=== PATIENT | male | born 1985 | race Two or more races ===

== ENCOUNTER 2021-04-29 14:29 | Emergency (ER) | payer OTHER, SELFPAY ==
[2021-04-29 15:00] VITALS: BP 156/80; PULSE 81; RESP 18; TEMP 36.2; O2SAT 100; BMI 37.3
--- NOTE | 2021-04-29 15:18 | ED.SKABFB ---
HPI - Skin/Abscess/Foreign Bdy General Chief complaint: Skin/Abscess/Foreign Body Stated complaint: rash Time Seen by Provider: 04/29/21 15:11 Source: patient Mode of arrival: ambulatory Limitations: no limitations History of Present Illness HPI narrative: 35-year-old male presenting to the ED with complaints of a rash splotchy like all over his body over the past few weeks worse over the past few days. He reports that he has been seen at the urgent care center and at [facility], [place] and they sent him home with Benadryl and steroids and he reports he finished a course of steroids and no symptomatic relief that the rash is getting worse. He reports that he takes Benadryl and he has mild to no symptomatic relief. He denies any new substances. He denies any other symptoms complaints or concerns at this time. MD complaint: rash Onset (ago): week(s) Location: generalized, LUE, RUE, buttocks and genitals Severity: moderate Quality: constant and pruritic Pain Consistency: constant Relieving factors: none Exacerbating factors: none Context: none Associated symptoms: denies other symptoms Treatments prior to arrival: other (Patient reports he has been taking Benadryl and finished a course of steroids although no symptomatic relief) Related Data Previous Rx's Medication Instructions Recorded clotrimazole 1 % topical ointment 1 appl TOPICAL Q12H 56 Days #56.7 g 04/29/21 fluconazole 150 mg tablet 150 mg PO Q3D #2 tab 04/29/21 (Diflucan) ketoconazole 2 % shampoo 1 appl TOPICAL 2XW #120 ml 04/29/21 Allergies Allergy/AdvReac Type Severity Reaction Status Date / Time No Known Allergies Allergy Verified 04/29/21 15:22 Review of Systems Review of Systems: Constitutional : No Fever, No Chills , no body aches, no recent illness Head/Face: No facial swelling, No facial redness ENT/Mouth : No oral/throat swelling, No Hoarseness, No Swallowing Difficulty Eyes: No Eye Pain, No Swelling, No Redness Cardiovascular : No Chest Pain, No SOB, No palpitations Respiratory : No Cough, No Sputum, No Wheezing, No Smoke Exposure, No Dyspnea Gastrointestinal : No Nausea, No Vomiting, No Diarrhea, No abdominal Pain Genitourinary : No Dysuria, No Urinary Frequency, No Hematuria Musculoskeletal : No joint pain, No Myalgias, No Joint Swelling Skin : No Skin Lesions, positive rash Neuro : No Weakness, No Numbness, No Headache, No dizziness, No tingling Psych : No Anxiety/Panic, No Depression Heme/Lymph: No Bruising, No Lymphadenopathy Endocrine : No Polyuria, No Polydipsia Denies changes in lotions or detergents. Denies new medications or any changes in medications. Denies drainage from rash. Denies any recent sick contacts or recent travel. Yes all other systems are reviewed and are negative [facility] Past Medical History Attestation statement: The following information was validated with the patient. Surgical History History of gastric bypass Physical Exam Vital Signs: Vital Signs: Last Vital Signs Temp 97.1 F 04/29/21 15:00 Pulse 81 04/29/21 15:00 Resp 18 04/29/21 15:00 BP 156/80 H 04/29/21 15:00 Pulse Ox 100 04/29/21 15:00 Body Mass Index 37.3 vital signs have been reviewed as normal and appeared to be correct. Blood pressure normal. Heart rate normal. Respiration rate normal. Temperature normal. Oxygen saturation normal. Appearance: Alert. Oriented X3. No acute distress. Head: Normal external exam. Normocephalic. Eyes: PERRLA. EOMI. Conjunctiva and sclera normal. Eyelids normal. ENT: Pharynx normal. Uvula midline. Moist mucous membranes. \ Neck: Normal inspection. Neck supple. FROM. No adenopathy. No meningeal signs. CVS: Normal heart rate and rhythm. Heart sound normal. No murmurs noted. Pulses normal throughout. Respiratory: No respiratory distress. Painless inspiration. Breath sounds normal. No wheezes/rales/rhonchi noted. Chest nontender. No accessory muscle usage noted or decreased air movement noted. Back: Full range of motion noted. Skin: Scattered all over the patient's chest/abdomen/bilateral arms lower extremities and groin area patient has dry scaly well-demarcated lesions with central clearing consistent with tinea corpusis. The rest of theSkin warm and dry. Normal skin color. Normal skin turgor. No lesions/lacerations noted. Extremities: Extremities exhibit normal range of motion. Extremities nontender. Neuro: Oriented X 3. No motor deficit. No sensory deficit. Reflexes normal. Normal steady gait. Course Course Course Narrative: 36-year-old male presenting to the ED with what appears to be Tinea Corporis. He was all ready treated with steroids and Benadryl no symptomatic relief. Will DC home with antifungal was and instructions to return if any new or worsening symptoms to follow up with primary care provider/trimming cutter. Patient understands agrees with this plan. MDM - Skin/Abscess/Foreign Bdy Medical Records Attestation: I reviewed the patient's medical records. Discharge Plan Discharge Clinical Impression: Tinea corporis Patient Disposition: Home, Self-Care Instructions: Tinea Corporis (ED) Prescriptions: New ketoconazole 2 % shampoo 1 appl topical 2XW Qty: 120 RF: 3 clotrimazole 1 % ointment 1 appl topical Q12H 56 Days Qty: 56.7 RF: 3 fluconazole [Diflucan] 150 mg tablet 150 mg PO Q3D Qty: 2 RF: 1 Referrals: Physician,Unknown [Primary Care Provider] - 2 days (your pcp) Print Language: Mohawk
== END 2021-04-29 15:29 | disposition home or self-care (01) ==
LOC: HO.ED 15:27
PROVIDERS: Emergency Provider Emergency Medicine Emergency Medical Services
DX: B35.4 Tinea corporis (principal); Z79.899 Other long term (current) drug therapy
CPT/HCPCS: 99283

== ENCOUNTER 2021-05-10 16:13 | Emergency (ER) | payer OTHER, SELFPAY ==
[2021-05-10 16:39] VITALS: BP 132/69; PULSE 70; RESP 16; TEMP 36.9; O2SAT 97; BMI 40.6
--- NOTE | 2021-05-10 17:36 | ED.SKABFB ---
HPI - Skin/Abscess/Foreign Bdy General Chief complaint: Skin/Abscess/Foreign Body Stated complaint: rash Time Seen by Provider: 05/10/21 17:35 History of Present Illness HPI narrative: Patient complains of rash over body that is very itchy that is developed over the last month and is now spreading to his children, no pain no fever Related Data Previous Rx's Medication Instructions Recorded clotrimazole 1 % topical ointment 1 appl TOPICAL Q12H 56 Days #56.7 g 04/29/21 fluconazole 150 mg tablet 150 mg PO Q3D #2 tab 04/29/21 (Diflucan) ketoconazole 2 % shampoo 1 appl TOPICAL 2XW #120 ml 04/29/21 permethrin 5 % topical cream 1 appl TOPICAL Q14D #60 g 05/10/21 (Elimite) Allergies Allergy/AdvReac Type Severity Reaction Status Date / Time No Known Allergies Allergy Verified 05/10/21 16:47 Review of Systems Review of Systems: Positive for red itchy rash Negatives no fever no chills no headache no neck pain no sore throat no chest pain no difficulty breathing no joint pains Yes all other systems are reviewed and are negative [facility] Past Medical History Surgical History History of gastric bypass Social History Social History Advance Directives: No Advance Directives Information Provided: No Physical Exam Vital Signs: Vital Signs: Last Vital Signs Temp 98.5 F 05/10/21 16:39 Pulse 70 05/10/21 16:39 Resp 16 05/10/21 16:39 BP 132/69 05/10/21 16:39 Pulse Ox 97 05/10/21 16:39 Body Mass Index 40.6 General appearance is no acute distress The head is normocephalic atraumatic Neck is supple Respiratory no distress Extremities full range of motion x4 The skin there is excoriated papular scabbed rash including in the web spaces of the fingers, there is no surrounding erythema there is no swelling there is no discharge from the wounds Course Course Course Narrative: Patient has already been treated for fungal infection possible allergic reaction with Claritin and prednisone The appearance of the rash could be scabies so I have added treatment for scabies and given that the 2 kids have it this is likelydiagnosis Discharge Plan Discharge Clinical Impression: Scabies Patient Disposition: Home, Self-Care Additional Instructions: Use permethrin cream as directed, apply it before bedtime and leave on for 12 hours then rinse off, apply to the entire body below the scalp You will probably have to repeated in 1 week Make sure your kids see the plush finisher for their rash Return any worse condition Follow with primary doctor Prescriptions: New permethrin [Elimite] 5 % cream 1 appl topical Q14D Qty: 60 RF: 0 No Action ketoconazole 2 % shampoo 1 appl topical 2XW Qty: 120 RF: 3 clotrimazole 1 % ointment 1 appl topical Q12H 56 Days Qty: 56.7 RF: 3 fluconazole [Diflucan] 150 mg tablet 150 mg PO Q3D Qty: 2 RF: 1 Interventions: ED Discharge Assessment Last Done: 05/10/21 17:54 Discharge Date/Time: 05/10/21 17:58
== END 2021-05-10 17:58 | disposition home or self-care (01) ==
PROVIDERS: Emergency Provider Emergency Medicine
DX: B86 Scabies (principal)
CPT/HCPCS: 99283